=== PATIENT | male | born 1945 | race Caucasian/White ===

== ENCOUNTER 2018-10-12 08:09 | Day surgery (SDC) | payer MEDICARE, BC ==
[~2018-10-12] VITALS: Ht 182.9 cm; Wt 77.8 kg
[2018-10-12 08:35] VITALS: BP 181/95
[2018-10-12] MEDS ORDERED: [UNRECOGNIZED DRUG - REMARK] (09:13)
[2018-10-12] MEDS ORDERED: HTN MED (09:13)
[2018-10-12] MEDS ORDERED: LACTATED RINGERS 1,000 ML IV SCH (09:30)
[2018-10-12] MEDS ORDERED: PROTAMINE SULFATE 10 MG/ML, 5ML ONE (11:28)
[2018-10-12] MEDS ORDERED: BUPIVACAINE/PF 0.5% ONE (11:28)
[2018-10-12] MEDS ORDERED: HEPARIN 1,000 UNITS/ML, 10ML ONE (11:28)
[2018-10-12] MEDS ORDERED: OXYcodone 5 MG/5 ML ORAL.SOL UDC PO PRN (11:30)
[2018-10-12] MEDS ORDERED: ACETAMINOPHEN 325 MG TABLET PO PRN (11:30)
[2018-10-12] MEDS ORDERED: EPHEDRINE 50 MG/ML, 1ML IM PRN (11:30)
[2018-10-12] MEDS ORDERED: ONDANSETRON ODT 8 MG PO PRN (11:30)
[2018-10-12] MEDS ORDERED: MIDAZOLAM 1 MG/ML, 2ML IV PRN (11:30)
[2018-10-12] MEDS ORDERED: METOPROLOL 1 MG/ML, 5ML IV PRN (11:30)
[2018-10-12] MEDS ORDERED: EPHEDRINE 50 MG/ML, 1ML IVPush PRN (11:30)
[2018-10-12] MEDS ORDERED: ONDANSETRON 2MG/ML, 2ML IV PRN (11:30)
[2018-10-12] MEDS ORDERED: hydrALAzine 20 MG/ML, 1ML IV PRN (11:30)
[2018-10-12] MEDS ORDERED: PROMETHAZINE 25 MG/ML, 1ML IV PRN (11:30)
[2018-10-12] MEDS ORDERED: MORPHINE SULFATE 4 MG/ML, 1ML IVPush PRN (11:30)
[2018-10-12] MEDS ORDERED: DIPHENHYDRAMINE 50 MG/ML, 1ML IVPush PRN (11:30)
[2018-10-12] MEDS ORDERED: FENTANYL PF 100 MCG/2ML IV PRN (11:30)
[2018-10-12] MEDS ORDERED: PROMETHAZINE 12.5 MG SUPP PR PRN (11:30)
[2018-10-12] MEDS ORDERED: PROMETHAZINE 25 MG SUPP PR PRN (11:30)
[2018-10-12] MEDS ORDERED: FENTANYL PF 100 MCG/2ML ONE ×2 (11:32→12:45)
[2018-10-12] MEDS ORDERED: MIDAZOLAM 1 MG/ML, 2ML ONE (11:32)
[2018-10-12] MEDS ORDERED: ROCURONIUM 10MG/ML,5ML ONE (11:56)
[2018-10-12] MEDS ORDERED: PROPOFOL 10 MG/ML, 20ML ONE (11:56)
[2018-10-12] MEDS ORDERED: CEFAZOLIN 1,000 MG ONE (11:56)
[2018-10-12] MEDS ORDERED: SUCCINYLCHOLINE 20 MG/ML, 10ML ONE (11:56)
[2018-10-12] MEDS ORDERED: ONDANSETRON 2MG/ML, 2ML ONE (11:56)
[2018-10-12] MEDS ORDERED: BUPIVACAINE/PF 0.5% INFIL ONE (12:34)
[2018-10-12] MEDS ORDERED: HEPARIN 1,000 UNITS/ML, 10ML IV ONE (12:34)
== END 2018-10-12 14:50 | disposition home or self-care (01) ==
LOC: OUT 08:09
PROVIDERS: ATTEND Surgery
DX: I12.0 Hypertensive chronic kidney disease with stage 5 chronic kidney disease or end stage renal disease (principal); N18.6 End stage renal disease
CPT/HCPCS: 36415; 36821; 49324; 80047; 93005; C1750; J0330; J0690; J1644; J2250; J2405; J2704; J2720; J3010; J3490; J7120

== ENCOUNTER 2018-12-14 05:00 | Outpatient (CLI) | payer MEDICARE, BC ==
[~2018-12-14] VITALS: Ht 185.4 cm; Wt 76.9 kg
[~2018-12-14 05:00] MED LIST: HTN MED; [UNRECOGNIZED DRUG - REMARK]
[2018-12-14 06:44] VITALS: BP 159/93
[2018-12-14] MEDS ORDERED: SODIUM CHLORIDE 0.9% 1,000 ML IV SCH (06:48)
[2018-12-14] MEDS ORDERED: HEPARIN 1,000 UNITS/ML, 10ML ONE (07:04)
== END 2018-12-14 23:59 | disposition home or self-care (01) ==
LOC: CLISVCS 05:00 → OUT 06:02 → EDSTATUS 07:30 → OUT 10:30 → CLISVCS 23:59
PROVIDERS: ATTEND Surgery Vascular Surgery
DX: N18.6 End stage renal disease (principal); Z53.9 Procedure and treatment not carried out, unspecified reason; Z88.8 Allergy status to other drugs, medicaments and biological substances
CPT/HCPCS: 36415; 80047; J7030; J1644

== ENCOUNTER 2019-01-11 07:50 | Day surgery (SDC) | payer MEDICARE, BC ==
[~2019-01-11] VITALS: Ht 182.9 cm; Wt 74.0 kg
[2019-01-11] MEDS ORDERED: SODIUM CHLORIDE 0.9% 1,000 ML IV SCH (09:04)
[2019-01-11 09:05] VITALS: BP 187/97
[2019-01-11] MEDS ORDERED: LIDOCAINE-MPF 1%, 2ML INFIL ONE (09:30)
[2019-01-11] MEDS ORDERED: MIDAZOLAM 1 MG/ML, 2ML ONE (09:46)
[2019-01-11] MEDS ORDERED: FENTANYL PF 100 MCG/2ML ONE ×2 (09:46→14:27)
[2019-01-11] MEDS ORDERED: HYDR-3341 PO (09:49)
[2019-01-11] MEDS ORDERED: AMLO-150 PO (09:49)
[2019-01-11] MEDS ORDERED: OMEP-110 PO (09:49)
[2019-01-11] MEDS ORDERED: SUCR500T PO (09:49)
[2019-01-11] MEDS ORDERED: VIT-7 PO (09:49)
[2019-01-11] MEDS ORDERED: CARV3.122 PO (09:49)
[2019-01-11] MEDS ORDERED: HEPARIN 1,000 UNITS/ML, 10ML ONE ×2 (10:12→13:25)
[2019-01-11] MEDS ORDERED: PROTAMINE SULFATE 10 MG/ML, 5ML ONE (10:12)
[2019-01-11] MEDS ORDERED: FENTANYL PF 100 MCG/2ML IV PRN (11:00)
[2019-01-11] MEDS ORDERED: PROMETHAZINE 25 MG/ML, 1ML IV PRN ×2 (11:00→15:00)
[2019-01-11] MEDS ORDERED: HYDROmorphone 1 MG/ML, 1ML AMP IV PRN ×2 (11:00→15:00)
[2019-01-11] MEDS ORDERED: MEPERIDINE/PF 25MG/0.5ML IVPush PRN ×2 (11:00→15:00)
[2019-01-11] MEDS ORDERED: ALBUTEROL SULFATE 2.5 MG/3 ML NPPB PRN ×2 (11:00→15:00)
[2019-01-11] MEDS ORDERED: KETOROLAC 30 MG/1 ML IV PRN ×2 (11:00→15:00)
[2019-01-11] MEDS ORDERED: OXYcodone 5 MG/5 ML ORAL.SOL UDC PO PRN ×2 (11:00→15:00)
[2019-01-11] MEDS ORDERED: LABETALOL 5MG/ML, 20ML IV PRN (11:00)
[2019-01-11] MEDS ORDERED: ONDANSETRON 2MG/ML, 2ML IVPush PRN ×2 (11:00→15:00)
[2019-01-11] MEDS ORDERED: METOCLOPRAMIDE 5 MG/ML, 2ML IV PRN ×2 (11:00→15:00)
[2019-01-11] MEDS ORDERED: PLEASE ENTER HEIGHT AND WEIGHT MC SCH (11:00)
[2019-01-11] MEDS ORDERED: hydrALAzine 20 MG/ML, 1ML ONE (11:26)
[2019-01-11] MEDS ORDERED: OXYcodone 5 MG/5 ML ORAL.SOL UDC ONE ×2 (11:33→14:27)
[2019-01-11] MEDS: hydrALAzine 20 MG/ML, 1ML IV PRN ×2 (11:34→11:48)
[2019-01-11] MEDS: FENTANYL PF 100 MCG/2ML IV PRN ×2 (14:30→14:45)
[2019-01-11] MEDS ORDERED: hydrALAzine 20 MG/ML, 1ML IV PRN (15:00)
[2019-01-11] MEDS ORDERED: LABETALOL 20 MG/4 ML IV PRN (15:00)
[2019-01-11] MEDS ORDERED: CEFAZOLIN 1,000 MG ONE (16:04)
[2019-01-11] MEDS ORDERED: ROCURONIUM 10MG/ML,5ML ONE (16:04)
[2019-01-11] MEDS ORDERED: PROPOFOL 10 MG/ML, 20ML ONE ×2 (16:04→16:06)
[2019-01-11] MEDS ORDERED: SUCCINYLCHOLINE 20 MG/ML, 10ML ONE ×2 (16:04→16:06)
[2019-01-11] MEDS ORDERED: ONDANSETRON 2MG/ML, 2ML ONE (16:04)
== END 2019-01-11 17:30 | disposition home or self-care (01) ==
LOC: OUT 07:50
PROVIDERS: ATTEND Surgery Vascular Surgery
DX: T84.86XA Thrombosis due to internal orthopedic prosthetic devices, implants and grafts, initial encounter (principal); T82.898A Other specified complication of vascular prosthetic devices, implants and grafts, initial encounter; I12.0 Hypertensive chronic kidney disease with stage 5 chronic kidney disease or end stage renal disease; N18.6 End stage renal disease; Z99.2 Dependence on renal dialysis; Y83.8 Other surgical procedures as the cause of abnormal reaction of the patient, or of later complication, without mention of misadventure at the time of the procedure; Y92.89 Other specified places as the place of occurrence of the external cause
CPT/HCPCS: 36590; 36833; 80047; C1757; J0330; J0360; J0690; J1644; J2250; J2405; J2704; J3010; J7030; J2720

== ENCOUNTER 2019-06-18 11:31 | Outpatient (CLI) | payer MEDICARE, BC ==
[~2019-06-18 11:31] MED LIST changes: +AMLO-150 PO; +CARV3.122 PO; +HYDR-3341 PO; +OMEP-110 PO; +SUCR500T PO; +VIT-7 PO
[2019-06-18] MEDS ORDERED: [UNRECOGNIZED DRUG - CODE] PO (12:08)
[2019-06-18] MEDS ORDERED: SUCR500T PO (12:08)
[2019-06-18] MEDS ORDERED: ERGO500017 PO (12:08)
[2019-06-18] MEDS ORDERED: POLY17PO5 PO (12:08)
[2019-06-18] MEDS ORDERED: OMEP20TA62 PO (12:08)
[2019-06-18] MEDS ORDERED: AMLO5TAB4 PO (12:08)
[2019-06-18] MEDS ORDERED: B,C/1TAB PO (12:08)
[2019-06-18] MEDS ORDERED: CARV6.2512 PO (12:08)
[2019-06-18] MEDS ORDERED: LOSA50TA14 PO (12:08)
[2019-06-18 12:43] LABS: BASOPHILS # (AUTO) 0.06 x10^3/uL (0-0.1); BASOPHILS % (AUTO) 1 % (0-1); EOSINOPHILS # (AUTO) 0.39 x10^3/uL (0-0.4); EOSINOPHILS % (AUTO) 5 % (1-7); LYMPHOCYTES # (AUTO) 1.22 x10^3/uL (1-3.4); LYMPHOCYTES % (AUTO) 15 % (22-44); MD NO; MEAN CORPUSCULAR HEMOGLOBIN 30.8 pg (27.5-34.5); MEAN CORPUSCULAR HGB CONC 32.9 g/dL (33.2-36.2); MEAN CORPUSCULAR VOLUME 93.4 fL (81-97); MEAN PLATELET VOLUME 6.1 fL (7.4-10.4); MONOCYTES # (AUTO) 0.74 x10^3/uL (0.2-0.8); MONOCYTES % (AUTO) 9 % (2-9); NEUTROPHILS # (AUTO) 5.93 x10^3/uL (1.8-6.8); NEUTROPHILS % (AUTO) 71 % (42-75); PLATELET COUNT 361 x10^3/uL (130-400); RED BLOOD COUNT 4.05 x10^6/uL (4.38-5.82); RED CELL DISTRIBUTION WIDTH 14.2 % (9.4-14.8)
[2019-06-18 12:46] LABS: MICROSCOPIC AUTO
[2019-06-18 12:52] LABS: INTERNATIONAL NORMALIZED RATIO 0.92 (0.93-1.1); PROTHROMBIN TIME 9.7 Seconds (9.6-11.5)
[2019-06-18 12:54] LABS: ALANINE AMINOTRANSFERASE 20 U/L (12-78); ALBUMIN 3.4 g/dL (3.4-5.0); ANION GAP 10 mmol/L (5-15); CALCIUM 9.7 mg/dL (8.5-10.1); CHLORIDE 106 mmol/L (98-107); CREATININE 9.05 mg/dL (0.7-1.3)
[2019-06-18 12:56] LABS: ALKALINE PHOSPHATASE 52 U/L (45-117); BILIRUBIN,TOTAL 0.3 mg/dL (0.2-1.0); TOTAL PROTEIN 7.3 g/dL (6.4-8.2)
== END 2019-06-18 23:59 | disposition home or self-care (01) ==
LOC: STAR 11:31
PROVIDERS: ATTEND Urology
DX: Z01.818 Encounter for other preprocedural examination (principal); C67.9 Malignant neoplasm of bladder, unspecified; R79.1 Abnormal coagulation profile; R82.998 Other abnormal findings in urine
CPT/HCPCS: 36415; 71046; 80053; 81001; 85025; 85610; 85730; 87086; 93005

== ENCOUNTER 2021-06-06 11:20 | Day surgery (SDC) | payer MEDICARE, BC ==
[2021-06-04 16:17] LABS: BASOPHILS % (AUTO) 2 % (0-1); EOSINOPHILS % (AUTO) 4 % (1-7); LYMPHOCYTES % (AUTO) 17 % (22-44); MEAN CORPUSCULAR HEMOGLOBIN 32.4 pg (27.5-34.5); MEAN PLATELET VOLUME 6.3 fL (7.4-10.4); MONOCYTES % (AUTO) 12 % (2-9); NEUTROPHILS % (AUTO) 65 % (42-75); PLATELET COUNT 342 x10^3/uL (130-400); RED BLOOD COUNT 3.11 x10^6/uL (4.38-5.82); RED CELL DISTRIBUTION WIDTH 14.2 % (9.4-14.8)
[2021-06-04 16:24] LABS: MICROSCOPIC AUTO
[2021-06-04 16:30] LABS: ALANINE AMINOTRANSFERASE 25 U/L (12-78); ALBUMIN 2.1 g/dL (3.4-5.0); ANION GAP 10 mmol/L (5-15); CHLORIDE 101 mmol/L (98-107)
[2021-06-04 16:31] LABS: INTERNATIONAL NORMALIZED RATIO 0.89 (0.93-1.1); PROTHROMBIN TIME 9.6 Seconds (9.6-11.5)
[2021-06-04 16:32] LABS: ALKALINE PHOSPHATASE 72 U/L (45-117); BILIRUBIN,TOTAL 0.4 mg/dL (0.2-1.0); TOTAL PROTEIN 5.8 g/dL (6.4-8.2)
[~2021-06-06] VITALS: Ht 180.3 cm; Wt 69.2 kg
[~2021-06-06 11:20] MED LIST changes: +AMLO5TAB4 PO; +B,C/1TAB PO; +CARV6.2512 PO; +ERGO500017 PO; +LOSA50TA14 PO; +OMEP20TA62 PO; +POLY17PO5 PO; +[UNRECOGNIZED DRUG - CODE] PO
[2021-06-06 12:13] VITALS: BP 153/74
[2021-06-06] MEDS ORDERED: CHLORHEXIDINE 15 ML UDC PO ONE (12:30)
[2021-06-06] MEDS ORDERED: SODIUM CHLORIDE 0.9% 1,000 ML IV SCH (12:30)
[2021-06-06] MEDS ORDERED: CHLORHEXIDINE 15 ML UDC ONE (12:32)
[2021-06-06] MEDS ORDERED: FENTANYL PF 250 MCG/5ML ONE (13:06)
[2021-06-06] MEDS ORDERED: KETOROLAC 30 MG/1 ML ONE (13:17)
[2021-06-06] MEDS ORDERED: PROMETHAZINE 25 MG/ML, 1ML IVPush PRN (15:00)
[2021-06-06] MEDS ORDERED: DIPHENHYDRAMINE 50 MG/ML, 1ML IVPush PRN (15:00)
[2021-06-06] MEDS ORDERED: GEMCITABINE HCL IV ONE (15:00)
[2021-06-06] MEDS ORDERED: FENTANYL PF 100 MCG/2ML IV PRN (15:00)
[2021-06-06] MEDS ORDERED: hydrALAzine 20 MG/ML, 1ML IV PRN (15:00)
[2021-06-06] MEDS ORDERED: ACETAMINOPHEN 325 MG TABLET PO PRN (15:00)
[2021-06-06] MEDS ORDERED: SODIUM CHLORIDE 0.9% IV ONE (15:00)
[2021-06-06] MEDS ORDERED: OXYcodone 5 MG/5 ML ORAL.SOL UDC PO PRN (15:00)
[2021-06-06] MEDS ORDERED: GEMCITABINE HCL 1,000 MG in SODIUM CHLORIDE 0.9% 23.7 ML IS ONE (15:00)
[2021-06-06] MEDS ORDERED: HALOPERIDOL 5 MG/ML IV PRN (15:00)
[2021-06-06] MEDS ORDERED: HYDROmorphone 1 MG/ML, 1ML INJ IVPush PRN (15:00)
[2021-06-06] MEDS ORDERED: LABETALOL 5MG/ML, 20ML IV PRN (15:00)
[2021-06-06] MEDS ORDERED: ONDANSETRON 2MG/ML, 2ML ONE (15:41)
[2021-06-06] MEDS ORDERED: DEXAMETHASONE 4 MG/ML, 1ML ONE (15:41)
[2021-06-06] MEDS ORDERED: PROPOFOL 10 MG/ML, 20ML ONE (15:41)
[2021-06-06] MEDS ORDERED: CEFAZOLIN 1,000 MG ONE (15:41)
== END 2021-06-06 18:25 | disposition home or self-care (01) ==
LOC: OUT 11:20
PROVIDERS: ATTEND Urology
DX: C67.4 Malignant neoplasm of posterior wall of bladder (principal); I12.0 Hypertensive chronic kidney disease with stage 5 chronic kidney disease or end stage renal disease; N18.6 End stage renal disease; K21.9 Gastro-esophageal reflux disease without esophagitis; Z87.891 Personal history of nicotine dependence; Z98.890 Other specified postprocedural states; Z99.2 Dependence on renal dialysis; Z79.899 Other long term (current) drug therapy; Z90.5 Acquired absence of kidney
CPT/HCPCS: 36415; 51720; 52234; 80053; 81001; 84132; 85025; 85610; 85730; 87086; 88305; 93005; J0690; J1100; J2405; J2704; J3010; J7030; J9201; J1885